=== PATIENT | male | born 1960 | race Caucasian/White ===

== ENCOUNTER 2020-04-24 11:14 | Inpatient (IN) ==
[2020-04-24 12:16] LABS: Basophils % 0.1 %; Eosinophils % 0.2 %; Hematocrit 27.5 % (37.5-50.1); Hemoglobin 8.4 g/dL (12.9-16.9); Immature Granulocytes % 0.7 % (0-4); Lymphocytes # 1.2 K/mcL (0.6-4.6); Lymphocytes % 10.9 %; Mean Corpuscular HGB Conc 30.5 g/dL (31.6-35.5); Mean Corpuscular Hemoglobin 27.7 pg (28.0-33.3); Mean Corpuscular Volume 90.8 fL (83.0-100.0); Monocytes # 0.4 K/mcL (0.0-1.3); Monocytes % 4.1 %; Neutrophils # 8.9 K/mcL (1.6-8.9); Platelet Count 455 K/mcL (140-400); Red Blood Count 3.03 M/mcL (4.19-5.50); Red Cell Distribution Width 19.9 % (11.5-14.5); White Blood Count 10.6 K/mcL (4.3-11.1)
[2020-04-24 12:27] LABS: BUN/Creatinine Ratio 19 (6-26); Blood Urea Nitrogen 26 mg/dL (6-20); Calcium 8.4 mg/dL (8.6-10.3); Carbon Dioxide 18 mEq/L (23-29); Chloride 99 mEq/L (98-107); Glucose 112 mg/dL (70-105); Osmolality,Calculated 276 (280-300); Potassium 4.6 mEq/L (3.5-5.1); Sodium 130 mEq/L (136-145); eGFR For African Americans > 60 (> 60); eGFR For Non-African Americans 53 (> 60)
[2020-04-24 12:31] LABS: Troponin I < 0.03 ng/mL (< 0.04)
[2020-04-24] MEDS ORDERED: Naloxone 0.4 MG/ML INJ IVP PRN ×2 (13:39→14:02)
[2020-04-24] MEDS ORDERED: Ondansetron 4 MG/2 ML VIAL IVP PRN ×2 (13:39→14:02)
[2020-04-24] MEDS ORDERED: Acetaminophen 325 MG TABLET PO PRN (13:39)
[2020-04-24] MEDS ORDERED: *HR* HYDROcodone/Acet 5/325 mg TABLET PO PRN ×2 (13:39→14:02)
[2020-04-24] MEDS ORDERED: Nitroglycerin 0.4 MG TAB.SUBL SL PRN ×2 (13:44→14:02)
[2020-04-24 15:45] LABS: Albumin 2.7 g/dL (3.5-5.7); Albumin/Globulin Ratio 0.7 (1.1-2.2); Bilirubin,Direct 0.1 mg/dL (0.0-0.2); Bilirubin,Indirect 0.2 mg/dL (0.0-1.0); Bilirubin,Total 0.3 mg/dL (0.3-1.0); Globulin 3.9 g/dL (2.4-3.5); Total Protein 6.6 g/dL (6.4-8.9)
[2020-04-24] MEDS ORDERED: Perflutren Lipid Microsphere 1.3 ML in 0.9 % Sodium Chloride 8.7 ML IVP PRN (15:47)
[2020-04-24] MEDS: Nicotine 14 MG PATCH.TD24 TD SCH (17:20)
[2020-04-24] MEDS: Furosemide 20 MG/2 ML VIAL IVP SCH (20:15)
[2020-04-24] MEDS: cloNIDine HCL 0.1 MG TABLET PO SCH (20:29)
[2020-04-24] MEDS: Apixaban 5 MG TABLET PO SCH (20:30)
[2020-04-24] MEDS ORDERED: Apixaban 5 MG TABLET PO SCH (21:00)
[2020-04-24] MEDS ORDERED: Furosemide 20 MG/2 ML VIAL IVP SCH (21:00)
[2020-04-25 05:25] LABS: Hemoglobin 7.4 g/dL (12.9-16.9); Mean Corpuscular HGB Conc 30.8 g/dL (31.6-35.5); Mean Corpuscular Hemoglobin 27.4 pg (28.0-33.3); Mean Corpuscular Volume 88.9 fL (83.0-100.0); Platelet Count 412 K/mcL (140-400); Red Cell Distribution Width 19.6 % (11.5-14.5); White Blood Count 8.3 K/mcL (4.3-11.1)
[2020-04-25 05:47] LABS: BUN/Creatinine Ratio 20 (6-26); Blood Urea Nitrogen 25 mg/dL (6-20); Carbon Dioxide 21 mEq/L (23-29); Chloride 101 mEq/L (98-107); Glucose 98 mg/dL (70-105); Magnesium 1.3 mg/dL (1.6-2.6); Osmolality,Calculated 276 (280-300); Potassium 4.2 mEq/L (3.5-5.1); Sodium 131 mEq/L (136-145); eGFR For African Americans > 60 (> 60); eGFR For Non-African Americans 59 (> 60)
[2020-04-25] MEDS ORDERED: *HR* Enoxaparin 40 MG/0.4 ML SYRINGE SQ SCH (06:00)
[2020-04-25] MEDS ORDERED: Apixaban 5 MG TABLET PO SCH (09:00)
[2020-04-25] MEDS ORDERED: Aspirin Enteric Coated 81 MG Tablet PO SCH (09:00)
[2020-04-25] MEDS: Aspirin Enteric Coated 81 MG Tablet PO SCH (09:37)
[2020-04-25] MEDS: Apixaban 5 MG TABLET PO SCH ×2 (09:38→19:48)
[2020-04-25] MEDS: amLODIPine 5 MG TABLET PO SCH (09:38)
[2020-04-25] MEDS: Folic Acid 1 MG TABLET PO SCH (09:38)
[2020-04-25] MEDS: cloNIDine HCL 0.1 MG TABLET PO SCH ×2 (09:38→19:48)
[2020-04-25] MEDS: atenoloL 50 MG TABLET PO SCH (09:38)
[2020-04-25] MEDS: lisinopriL 20 MG TABLET PO SCH (09:38)
[2020-04-25] MEDS: Nicotine 14 MG PATCH.TD24 TD SCH (09:39)
[2020-04-25] MEDS: Furosemide 20 MG/2 ML VIAL IVP SCH (09:39)
[2020-04-25] MEDS: (Cranberry 500 MG Capsule) PO SCH (09:42)
[2020-04-25] MEDS: Acetaminophen 325 MG TABLET PO PRN (19:47)
[2020-04-25] MEDS: Magnesium Oxide 400 MG TABLET PO SCH (19:48)
[2020-04-26 05:30] LABS: Hematocrit 23.5 % (37.5-50.1); Hemoglobin 7.3 g/dL (12.9-16.9); Mean Corpuscular HGB Conc 31.1 g/dL (31.6-35.5); Mean Corpuscular Hemoglobin 27.5 pg (28.0-33.3); Mean Corpuscular Volume 88.7 fL (83.0-100.0); Platelet Count 362 K/mcL (140-400); Red Blood Count 2.65 M/mcL (4.19-5.50); Red Cell Distribution Width 19.4 % (11.5-14.5); White Blood Count 6.3 K/mcL (4.3-11.1)
[2020-04-26 05:50] LABS: BUN/Creatinine Ratio 18 (6-26); Blood Urea Nitrogen 21 mg/dL (6-20); Calcium 7.7 mg/dL (8.6-10.3); Carbon Dioxide 22 mEq/L (23-29); Chloride 100 mEq/L (98-107); Glucose 105 mg/dL (70-105); Magnesium 1.6 mg/dL (1.6-2.6); Osmolality,Calculated 277 (280-300); Sodium 132 mEq/L (136-145); eGFR For African Americans > 60 (> 60); eGFR For Non-African Americans > 60 (> 60)
[2020-04-26 09:03] LABS: Iron < 10 mcg/dL (65-175); Transferrin 95 mg/dL (203-362)
[2020-04-26] MEDS: Aspirin Enteric Coated 81 MG Tablet PO SCH (09:21)
[2020-04-26] MEDS: cloNIDine HCL 0.1 MG TABLET PO SCH ×2 (09:21→20:07)
[2020-04-26] MEDS: Apixaban 5 MG TABLET PO SCH ×2 (09:21→20:08)
[2020-04-26] MEDS: Magnesium Oxide 400 MG TABLET PO SCH ×2 (09:21→20:07)
[2020-04-26] MEDS: amLODIPine 5 MG TABLET PO SCH (09:21)
[2020-04-26] MEDS: Folic Acid 1 MG TABLET PO SCH (09:21)
[2020-04-26] MEDS: lisinopriL 20 MG TABLET PO SCH (09:21)
[2020-04-26] MEDS: Furosemide 20 MG TABLET PO SCH (09:21)
[2020-04-26] MEDS: atenoloL 50 MG TABLET PO SCH (09:21)
[2020-04-26] MEDS: Nicotine 14 MG PATCH.TD24 TD SCH (09:22)
[2020-04-26] MEDS: (Cranberry 500 MG Capsule) PO SCH (09:22)
[2020-04-26] MEDS: Acetaminophen 325 MG TABLET PO PRN (14:11)
[2020-04-26] MEDS: Iron Sucrose Complex 200 MG in 0.9 % Sodium Chloride 100 ML IVPB SCH (17:50)
[2020-04-27 04:57] LABS: Hemoglobin 7.7 g/dL (12.9-16.9); Mean Corpuscular HGB Conc 30.8 g/dL (31.6-35.5); Mean Corpuscular Hemoglobin 27.9 pg (28.0-33.3); Mean Corpuscular Volume 90.6 fL (83.0-100.0); Mean Platelet Volume 9.4 fL (9.4-12.4); Platelet Count 397 K/mcL (140-400); Red Blood Count 2.76 M/mcL (4.19-5.50); Red Cell Distribution Width 19.5 % (11.5-14.5); White Blood Count 7.3 K/mcL (4.3-11.1)
[2020-04-27 05:14] LABS: BUN/Creatinine Ratio 18 (6-26); Blood Urea Nitrogen 20 mg/dL (6-20); Calcium 7.7 mg/dL (8.6-10.3); Carbon Dioxide 24 mEq/L (23-29); Chloride 98 mEq/L (98-107); Glucose 119 mg/dL (70-105); Osmolality,Calculated 274 (280-300); Sodium 130 mEq/L (136-145); eGFR For African Americans > 60 (> 60); eGFR For Non-African Americans > 60 (> 60)
[2020-04-27] MEDS: cloNIDine HCL 0.1 MG TABLET PO SCH ×2 (08:49→20:31)
[2020-04-27] MEDS: Furosemide 20 MG TABLET PO SCH (08:49)
[2020-04-27] MEDS: Acetaminophen 325 MG TABLET PO PRN ×2 (08:49→20:31)
[2020-04-27] MEDS: Folic Acid 1 MG TABLET PO SCH (08:49)
[2020-04-27] MEDS: Magnesium Oxide 400 MG TABLET PO SCH ×2 (08:49→20:31)
[2020-04-27] MEDS: lisinopriL 20 MG TABLET PO SCH (08:49)
[2020-04-27] MEDS: Aspirin Enteric Coated 81 MG Tablet PO SCH (08:49)
[2020-04-27] MEDS: amLODIPine 5 MG TABLET PO SCH (08:50)
[2020-04-27] MEDS: Nicotine 14 MG PATCH.TD24 TD SCH (08:50)
[2020-04-27] MEDS: Apixaban 5 MG TABLET PO SCH ×2 (08:50→20:31)
[2020-04-27] MEDS: atenoloL 50 MG TABLET PO SCH (08:50)
[2020-04-27] MEDS: (Cranberry 500 MG Capsule) PO SCH (08:50)
[2020-04-27] MEDS: Iron Sucrose Complex 200 MG in 0.9 % Sodium Chloride 100 ML IVPB SCH (18:34)
[2020-04-28] MEDS: Magnesium Oxide 400 MG TABLET PO SCH ×2 (08:38→22:06)
[2020-04-28] MEDS: cloNIDine HCL 0.1 MG TABLET PO SCH ×2 (08:38→22:06)
[2020-04-28] MEDS: Folic Acid 1 MG TABLET PO SCH (08:39)
[2020-04-28] MEDS: Aspirin Enteric Coated 81 MG Tablet PO SCH (08:39)
[2020-04-28] MEDS: lisinopriL 20 MG TABLET PO SCH (08:39)
[2020-04-28] MEDS: Furosemide 20 MG TABLET PO SCH (08:39)
[2020-04-28] MEDS: Apixaban 5 MG TABLET PO SCH ×2 (08:39→22:06)
[2020-04-28] MEDS: Nicotine 14 MG PATCH.TD24 TD SCH (08:39)
[2020-04-28] MEDS: amLODIPine 5 MG TABLET PO SCH (08:39)
[2020-04-28] MEDS: (Cranberry 500 MG Capsule) PO SCH (08:39)
[2020-04-28] MEDS: atenoloL 50 MG TABLET PO SCH (08:39)
[2020-04-28] MEDS: Iron Sucrose Complex 200 MG in 0.9 % Sodium Chloride 100 ML IVPB SCH (08:40)
[2020-04-28] MEDS: Acetaminophen 325 MG TABLET PO PRN (08:44)
[2020-04-28] MEDS ORDERED: Ondansetron ODT 4 MG TAB.RAPDIS SL PRN (12:36)
[2020-04-28 19:46] LABS: Adenovirus F 40/41 PCR Not detected (Not detect); Astrovirus PCR Not detected (Not detect); C.difficile Toxin A/B Gene PCR Not detected (Not detect); Campylobacter by PCR Not detected (Not detect); Cryptosporidium by PCR Not detected (Not detect); Cyclospora cayetanensis PCR Not detected (Not detect); E. coli O157 by PCR Not detected (Not detect); Entamoeba histolytica PCR Not detected (Not detect); Enteroaggregative E.coli(EAEC) Not detected (Not detect); Enteropathogenic E.coli(EPEC) Not detected (Not detect); Enterotoxigenic E.coli (ETEC) Not detected (Not detect); Giardia lamblia PCR Not detected (Not detect); Norovirus GI/GII PCR Not detected (Not detect); Plesiomonas shigelloides PCR Not detected (Not detect); Rotavirus A PCR Not detected (Not detect); Salmonella PCR Not detected (Not detect); Sapovirus PCR Not detected (Not detect); Shig/EnteroinvasiveE coli EIEC Not detected (Not detect); Shigalike tox-prod E coli STEC Not detected (Not detect); Vibrio PCR Not detected (Not detect); Vibrio cholerae PCR Not detected (Not detect); Yersinia enterocolitica PCR Not detected (Not detect)
[2020-04-29] MEDS: (Cranberry 500 MG Capsule) PO SCH (08:14)
[2020-04-29] MEDS: Nicotine 14 MG PATCH.TD24 TD SCH (08:15)
[2020-04-29] MEDS: Furosemide 20 MG TABLET PO SCH (09:19)
[2020-04-29] MEDS: lisinopriL 20 MG TABLET PO SCH (09:20)
[2020-04-29] MEDS: Apixaban 5 MG TABLET PO SCH ×2 (09:26→20:45)
[2020-04-29] MEDS: amLODIPine 5 MG TABLET PO SCH (09:27)
[2020-04-29] MEDS: atenoloL 50 MG TABLET PO SCH (09:27)
[2020-04-29] MEDS: cloNIDine HCL 0.1 MG TABLET PO SCH ×2 (09:27→20:45)
[2020-04-29] MEDS: Aspirin Enteric Coated 81 MG Tablet PO SCH (09:27)
[2020-04-29] MEDS: Folic Acid 1 MG TABLET PO SCH (09:27)
[2020-04-29] MEDS: Magnesium Oxide 400 MG TABLET PO SCH ×2 (09:27→20:45)
[2020-04-30 07:20] LABS: Hematocrit 21.6 % (37.5-50.1); Hemoglobin 6.7 g/dL (12.9-16.9); Mean Corpuscular Hemoglobin 28.2 pg (28.0-33.3); Mean Corpuscular Volume 90.8 fL (83.0-100.0); Mean Platelet Volume 9.6 fL (9.4-12.4); Platelet Count 389 K/mcL (140-400); Red Blood Count 2.38 M/mcL (4.19-5.50); Red Cell Distribution Width 19.2 % (11.5-14.5); White Blood Count 5.4 K/mcL (4.3-11.1)
[2020-04-30 07:39] LABS: Alanine Aminotransferase 7 Units/L (7-52); Albumin/Globulin Ratio 0.6 (1.1-2.2); Alkaline Phosphatase 68 Units/L (34-104); Aspartate Amino Transferase 13 Units/L (13-39); BUN/Creatinine Ratio 18 (6-26); Bilirubin,Total 0.3 mg/dL (0.3-1.0); Blood Urea Nitrogen 17 mg/dL (6-20); Calcium 8.1 mg/dL (8.6-10.3); Carbon Dioxide 27 mEq/L (23-29); Chloride 97 mEq/L (98-107); Globulin 3.3 g/dL (2.4-3.5); Glucose 96 mg/dL (70-105); Magnesium 1.3 mg/dL (1.6-2.6); Osmolality,Calculated 269 (280-300); Potassium 4.2 mEq/L (3.5-5.1); Sodium 129 mEq/L (136-145); Total Protein 5.3 g/dL (6.4-8.9); eGFR For African Americans > 60 (> 60); eGFR For Non-African Americans > 60 (> 60)
[2020-04-30] MEDS: Aspirin Enteric Coated 81 MG Tablet PO SCH (09:55)
[2020-04-30] MEDS: lisinopriL 20 MG TABLET PO SCH (09:55)
[2020-04-30] MEDS: cloNIDine HCL 0.1 MG TABLET PO SCH ×2 (09:55→21:51)
[2020-04-30] MEDS: Furosemide 20 MG TABLET PO SCH (09:55)
[2020-04-30] MEDS: amLODIPine 5 MG TABLET PO SCH (09:56)
[2020-04-30] MEDS: Magnesium Oxide 400 MG TABLET PO SCH ×2 (09:56→21:52)
[2020-04-30] MEDS: (Cranberry 500 MG Capsule) PO SCH (09:56)
[2020-04-30] MEDS: Folic Acid 1 MG TABLET PO SCH (09:56)
[2020-04-30] MEDS: Nicotine 14 MG PATCH.TD24 TD SCH (09:56)
[2020-04-30] MEDS: atenoloL 50 MG TABLET PO SCH (09:56)
[2020-04-30] MEDS: Apixaban 5 MG TABLET PO SCH ×2 (09:56→21:51)
[2020-04-30] MEDS: Acetaminophen 325 MG TABLET PO PRN ×2 (10:01→16:42)
[2020-04-30] MEDS: Iron Sucrose Complex 200 MG in 0.9 % Sodium Chloride 100 ML IVPB SCH (21:40)
[2020-04-30] MEDS ORDERED: Furosemide 20 MG/2 ML VIAL IVP ONE ×2 (23:00→23:15)
[2020-05-01] MEDS: cloNIDine HCL 0.1 MG TABLET PO SCH (09:13)
[2020-05-01] MEDS: amLODIPine 5 MG TABLET PO SCH (09:13)
[2020-05-01] MEDS: Apixaban 5 MG TABLET PO SCH (09:13)
[2020-05-01] MEDS: lisinopriL 20 MG TABLET PO SCH (09:13)
[2020-05-01] MEDS: Aspirin Enteric Coated 81 MG Tablet PO SCH (09:13)
[2020-05-01] MEDS: Folic Acid 1 MG TABLET PO SCH (09:13)
[2020-05-01] MEDS: Magnesium Oxide 400 MG TABLET PO SCH (09:13)
[2020-05-01] MEDS: Iron Sucrose Complex 200 MG in 0.9 % Sodium Chloride 100 ML IVPB SCH (09:14)
[2020-05-01] MEDS: Nicotine 14 MG PATCH.TD24 TD SCH (09:14)
[2020-05-01] MEDS: atenoloL 50 MG TABLET PO SCH (09:14)
[2020-05-01] MEDS: Furosemide 20 MG TABLET PO SCH (09:14)
[2020-05-01] MEDS: (Cranberry 500 MG Capsule) PO SCH (09:14)
[2020-05-01 10:26] LABS: Basophils % 0.8 %; Eosinophils % 0.8 %; Hematocrit 31.1 % (37.5-50.1); Hemoglobin 9.9 g/dL (12.9-16.9); Immature Granulocytes % 0.8 % (0-4); Lymphocytes # 1.3 K/mcL (0.6-4.6); Lymphocytes % 28.1 %; Mean Corpuscular HGB Conc 31.8 g/dL (31.6-35.5); Mean Corpuscular Hemoglobin 28.3 pg (28.0-33.3); Mean Corpuscular Volume 88.9 fL (83.0-100.0); Mean Platelet Volume 9.4 fL (9.4-12.4); Monocytes # 0.5 K/mcL (0.0-1.3); Monocytes % 10.3 %; Neutrophils # 2.8 K/mcL (1.6-8.9); Platelet Count 300 K/mcL (140-400); Red Cell Distribution Width 17.5 % (11.5-14.5); Segmented Neutrophils % 59.2 %; White Blood Count 4.7 K/mcL (4.3-11.1)
[2020-05-01 10:40] LABS: BUN/Creatinine Ratio 17 (6-26); Blood Urea Nitrogen 17 mg/dL (6-20); Calcium 8.1 mg/dL (8.6-10.3); Carbon Dioxide 25 mEq/L (23-29); Chloride 94 mEq/L (98-107); Glucose 110 mg/dL (70-105); Magnesium 1.5 mg/dL (1.6-2.6); Osmolality,Calculated 262 (280-300); Potassium 3.9 mEq/L (3.5-5.1); Sodium 125 mEq/L (136-145); eGFR For African Americans > 60 (> 60); eGFR For Non-African Americans > 60 (> 60)
[2020-05-01] MEDS ORDERED: Magnesium Oxide 400 MG TABLET PO ONE (11:42)
[2020-05-01 15:50] VITALS: BP 125/83
== END 2020-05-01 16:25 | disposition home health service (06) | DRG 280 ==
LOC: EMEROOGRE 11:14 → INPGRE 13:26 → INTOOBSV 13:26 → INPGRE 13:45
PROVIDERS: ADMIT Family Medicine; ATTEND Family Medicine